=== PATIENT | male | born 1985 | race American Indian/Alaskan Native ===

== ENCOUNTER 2019-05-10 07:52 | Emergency (ER) | payer MEDICARE ==
[2019-05-10 08:06] VITALS: BP 141/82
--- NOTE | 2019-05-10 10:01 | Emergency Department Report ---
ED General Adult HPI - General Chief complaint: Recheck/Abnormal Lab/Rx Stated complaint: NEEDS SLEEP MEDS/CANT SLEEP Time Seen by Provider: 05/10/19 09:55 Source: patient Mode of arrival: Ambulatory Limitations: No Limitations - History of Present Illness Initial comments: Patient reports he was recently discharged from a mental facility in [place] 05/06/2019. However since discharged from the center, he reports insomnia and requests a prescription to assist him with sleep. He denies any thoughts of harm to self or others. He reports compliance with his psychiatric medications such as Haldol weekly injection, Cogentin and Depakote. MD Complaint: insomnia Onset/Timin -: days(s) Radiation: non-radiation Severity scale (0 -10): 0 Quality: other (none) Consistency: constant Improves with: none Worsens with: none Associated Symptoms: denies other symptoms. denies: confusion, chest pain, cough, diaphoresis, fever/chills, headaches, loss of appetite, malaise, nausea/vomiting, rash, seizure, shortness of breath, syncope, weakness Treatments Prior to Arrival: none - Related Data Allergies Allergy/AdvReac Type Severity Reaction Status Date / Time No Known Allergies Allergy Verified 05/10/19 08:02 ED Review of Systems ROS: Stated complaint: NEEDS SLEEP MEDS/CANT SLEEP Other details as noted in HPI Constitutional: denies: chills, fever Eyes: denies: eye pain, eye discharge, vision change ENT: denies: ear pain, throat pain, hearing loss, epistaxis Respiratory: denies: cough, orthopnea, shortness of breath, SOB with exertion, SOB at rest, stridor, wheezing Cardiovascular: denies: chest pain, palpitations, dyspnea on exertion, orthopnea, edema, syncope, paroxysmal nocturnal dyspnea Endocrine: no symptoms reported Gastrointestinal: denies: abdominal pain, nausea, diarrhea Genitourinary: denies: urgency, dysuria Musculoskeletal: denies: back pain, joint swelling, arthralgia Skin: denies: rash, lesions Neurological: denies: headache, weakness, numbness, paresthesias, confusion, abnormal gait, vertigo Psychiatric: other (insomnia). denies: anxiety, depression, auditory hallucinations, visual hallucinations, homicidal thoughts, suicidal thoughts Hematological/Lymphatic: denies: easy bleeding, easy bruising ED Past Medical Hx - Past Medical History Previous Medical History?: Yes Hx Psychiatric Treatment: Yes (bipolar and schizophrenia) - Surgical History Past Surgical History?: No - Social History Smoking Status: Never Smoker Substance Use Type: None ED Physical Exam - General Limitations: No Limitations General appearance: alert, in no apparent distress - Head Head exam: Present: atraumatic, normocephalic - Respiratory Respiratory exam: Present: normal lung sounds bilaterally. Absent: respiratory distress, wheezes, rales, rhonchi, stridor, chest wall tenderness, accessory muscle use, decreased breath sounds, prolonged expiratory - Cardiovascular Cardiovascular Exam: Present: regular rate, normal rhythm, normal heart sounds. Absent: systolic murmur, diastolic murmur, rubs, gallop - Extremities Exam Extremities exam: Present: normal inspection, full ROM, normal capillary refill. Absent: tenderness, pedal edema, joint swelling, calf tenderness - Neurological Exam Neurological exam: Present: alert, oriented X3, CN II-XII intact, normal gait, reflexes normal. Absent: motor sensory deficit - Psychiatric Psychiatric exam: Present: normal affect, normal mood. Absent: depressed, agitated, anxious, flat affect, manic, homicidal ideation, suicidal ideation - Skin Skin exam: Present: warm, dry, intact, normal color. Absent: rash ED Course Vital Signs 05/10/19 08:03 Pulse Rate 74 Respiratory 16 Rate Blood Pressure 141/82 O2 Sat by Pulse 96 Oximetry ED Medical Decision Making - Lab Data Vital Signs 05/10/19 08:03 Pulse Rate 74 Respiratory 16 Rate Blood Pressure 141/82 O2 Sat by Pulse 96 Oximetry - Medical Decision Making During the course of ED, all other systems were unremarkable except for documentation in HPI. Patient was instructed to keep scheduled appointment with Dr. Wilder, his psychiatrist next week. He was also given remedies to assist with sleep hygienes such as stay active, avoidance of alcohol, caffeine, nicotine, limit daytime naps, avoid large meals and beverages before bed. He verbalized understanding - Differential Diagnosis Insomnia, Depression, Medication-related Insomnia Critical care attestation.: If time is entered above; I have spent that time in minutes in the direct care of this critically ill patient, excluding procedure time. ED Disposition Clinical Impression: Insomnia Qualifiers: Insomnia type: due to other mental disorder Qualified Code(s): F51.05 - Insomnia due to other mental disorder Disposition: DC-01 TO HOME OR SELFCARE Is pt being admited?: No Does the pt Need Aspirin: No Condition: Stable Instructions: Insomnia (ED) Additional Instructions: Follow up with Dr. Wilder as scheduled. The following suggestions are helpful to reduce insomnia such as wake up at the same time each day, eliminate alcohol and stimulants like nicotine and caffeine, limit naps, exercise regularly, limit activities in bed, do not eat or drink right before going to bed and make your sleeping environment comfortable. Return for worsening symptoms or concerns Referrals: PRIMARY CARE, [Primary Care Provider] - 3-5 Days Time of Disposition: 09:56
== END 2019-05-10 10:12 | disposition home or self-care (01) ==
LOC: ED 07:52
DX: G47.00 Insomnia, unspecified (principal); F25.0 Schizoaffective disorder, bipolar type